=== PATIENT | female | born 1930 | race Caucasian/White ===

== ENCOUNTER 2017-02-13 08:12 | Emergency (ER) | payer MEDICARE, OTHER ==
[~2017-02-13] VITALS: Ht 165.1 cm; Wt 79.0 kg
[2017-02-13] MEDS ORDERED: SODIUM CHLORIDE 0.9% 1,000 ML IV ONE (08:20)
[2017-02-13] MEDS ORDERED: PLEASE ENTER ALLERGIES MC SCH (08:30)
[2017-02-13] MEDS ORDERED: SODIUM CHLORIDE FLUSH 10ML SYR IVF ONE (08:30)
[2017-02-13] MEDS ORDERED: ASPIRIN 81 MG TABLET CHEW PO ONE (08:30)
[2017-02-13 08:59] LABS: BASOPHILS # (AUTO) 0.06 x10^3/uL (0-0.1); BASOPHILS % (AUTO) 1 % (0-1); EOSINOPHILS # (AUTO) 0.02 x10^3/uL (0-0.4); EOSINOPHILS % (AUTO) 0 % (1-7); LYMPHOCYTES # (AUTO) 1.78 x10^3/uL (1-3.4); LYMPHOCYTES % (AUTO) 15 % (22-44); MD NO; MEAN CORPUSCULAR HEMOGLOBIN 28.9 pg (27.0-34.8); MEAN CORPUSCULAR HGB CONC 33.5 g/dL (32.4-35.8); MEAN CORPUSCULAR VOLUME 86.2 fL (80-100); MEAN PLATELET VOLUME 8.9 fL (7.4-10.4); MONOCYTES % (AUTO) 4 % (2-9); NEUTROPHILS # (AUTO) 9.22 x10^3/uL (1.8-6.8); NEUTROPHILS % (AUTO) 80 % (42-75); PLATELET COUNT 273 x10^3/uL (130-400); RED BLOOD COUNT 5.05 x10^6/uL (3.82-5.3); RED CELL DISTRIBUTION WIDTH 14.3 % (9.6-15.2)
[2017-02-13] MEDS ORDERED: ASPIRIN 81 MG TABLET CHEW ONE (09:01)
[2017-02-13] MEDS ORDERED: CLOP75TA52 PO (09:09)
[2017-02-13] MEDS ORDERED: ATOR20TA9 PO (09:09)
[2017-02-13] MEDS ORDERED: TRIA50CA PO (09:10)
[2017-02-13] MEDS ORDERED: NIFE30TA13 PO (09:10)
[2017-02-13 09:11] LABS: ALBUMIN 3.7 g/dL (3.4-5.0); ANION GAP 6 mmol/L (5-15); CALCIUM 9.1 mg/dL (8.5-10.1); CHLORIDE 105 mmol/L (98-107); CREATININE 0.97 mg/dL (0.55-1.02)
[2017-02-13 09:15] LABS: TROPONIN I < 0.015 ng/mL (0.000-0.045)
[2017-02-13] MEDS ORDERED: hydrALAzine 20 MG/ML, 1ML ONE (10:00)
[2017-02-13] MEDS ORDERED: hydrALAzine 20 MG/ML, 1ML IV ONE (10:00)
[2017-02-13 11:14] VITALS: BP 183/62
== END 2017-02-13 11:42 | disposition home or self-care (01) ==
LOC: ED 11:23
DX: J44.9 Chronic obstructive pulmonary disease, unspecified (principal); E78.00 Pure hypercholesterolemia, unspecified; I10 Essential (primary) hypertension; M10.9 Gout, unspecified
CPT/HCPCS: 36415; 71020; 80048; 82040; 84484; 85025; 93005; 96361; 96374; 99285; J0360; J7030